=== PATIENT | female | born 1950 | race Caucasian/White ===

== ENCOUNTER → 2019-07-18 10:07 | Outpatient (CLI) | payer OTHER, SELFPAY ==
--- NOTE | ~2019-07-18 | DEXA_ITS ---
Bone Density Report Name: Sari Toro Age: 69 Sex: Female Ethnicity: White Date of : 1950 Indication: postmenopausal osteoporosis; monitoring treatment; asthma or emphysema; hysterectomy; Referring Provider: AINSLEY BENJAMIN Study: Bone densitometry was performed. Exam Date: July 18, 2019 Accession number: [id number] Bone Density: Region BMD T-score Z-score Classification AP Spine (L1-L4) 0.739 -2.8 -0.7 Osteoporosis Femoral Neck (Left) 0.527 -2.9 -1.1 Osteoporosis Total Hip (Left) 0.658 -2.3 -0.8 Osteopenia Femoral Neck (Right) 0.523 -2.9 -1.1 Osteoporosis Total Hip (Right) 0.610 -2.7 -1.2 Osteoporosis Total Hip Mean 0.634 -2.5 -1.0 Osteoporosis World Health Organization criteria for BMD impression classify patients as: Normal (T-score at or above -1.0), Osteopenia (T-score between -1.0 and -2.5), or Osteoporosis (T-score at or below -2.5). 10-year Fracture Risk: FRAX not reported because: Some T-score for Spine Total or Hip Total or Femoral Neck at or below -2.5 Treated for osteoporosis Previous Exams: Region Exam Age BMD T-score BMD Change BMD Change Date g/cm2 vs Baseline vs Previous AP Spine(L1-L4) 07/18/2019 69 0.739 -2.8 0.054* 0.054* 09/24/2015 65 0.685 -3.3 Total Hip(Left) 07/18/2019 69 0.658 -2.3 0.016 0.016 09/24/2015 65 0.643 -2.5 Total Hip(Right) 07/18/2019 69 0.610 -2.7 0.001 0.001 09/24/2015 65 0.609 -2.7 *Denotes significance at 95% confidence level, LSC for AP Spine = 0.022 g/cm2, LSC for Total Hip = 0.027 g/cm2 Clinical Information Provided by Patient: Is being treated for osteoporosis Has used the following medications: Fosamax (i.e. alendronate), Vitamin D Has the following medical conditions: Asthma or Emphysema, Hysterectomy Patient maximum height was 63 Menopause Age: 29 No regular weight bearing exercise Does not regularly consume dairy products Drinks caffeinated beverages Onset of menses at age 13 Number of children 2 Impression: The patient has osteoporosis, based on the Left Femoral Neck T-score. No significant bone loss was observed. Discussion: PATIENT UNDER TREATMENT WITH NO SIGNIFICANT BMD LOSS SINCE LAST EXAM. In an untreated patient, BMD typically declines with age. A lack of decline or gain is usually a sign that treatment is efficacious and fracture risk is reduced. It is important to ask patients whether they
== END ==
PROVIDERS: PCP Family Medicine Adolescent Medicine; Visit Provider Family Medicine Adolescent Medicine
DX: M81.0 Age-related osteoporosis without current pathological fracture (principal)
CPT/HCPCS: 77080

== ENCOUNTER → 2019-08-19 13:20 | Outpatient (CLI) | payer OTHER, SELFPAY ==
--- NOTE | ~2019-08-19 | MM_ITS ---
EXAMINATION: MM screening shantel BI w zach HISTORY: Screening mammogram, family history of breast cancer in her mother. TECHNIQUE: Craniocaudal and mediolateral oblique 3-D tomosynthesis images were obtained and synthetic 2-D images were generated. CAD analysis was submitted and interpreted. COMPARISON: 09/24/2015, 03/11/2012, 03/12/2006, 10/31/2004 BREAST PARENCHYMAL COMPOSITION: The breasts are heterogeneously dense, which may obscure small masses . FINDINGS: There is no evidence of suspicious mass, calcification, or architectural distortion to sugg est malignancy in either breast. There has been no suspicious interval change. IMPRESSION: 1. No mammographic evidence of malignancy. 2. Recommend routine screening mammography in one year. BI-RADS Category 1: Negative Reviewed, dictated and finalized at location A.
== END ==
PROVIDERS: PCP Family Medicine Adolescent Medicine; Visit Provider Family Medicine Adolescent Medicine
DX: Z12.31 Encounter for screening mammogram for malignant neoplasm of breast (principal)
CPT/HCPCS: 77063; 77067

== ENCOUNTER 2020-09-08 07:26 | Outpatient (CLI) | payer OTHER, SELFPAY ==
--- NOTE | ~2020-09-08 | MR_ITS ---
EXAMINATION: MR cervical spine wo/w con EXAM DATE: 09/08/2020 09:42 INDICATION: Parkinson's disease, cervical disc disorder w myelopathy. TECHNIQUE: Multi-sequential, multiplanar MR images of the cervical spine were obtained without contra st. Axial T2, axial T2 MERGE sequence. Sagittal T1, T2, T2 fat saturation images also obtained. Axi al T1 weighted sequence. Patient was then injected with 12 mL Multihance intravenous contrast and re imaged. Postcontrast axial and sagittal T1-weighted fat saturation sequences were obtained. There ar e no prior studies for comparison. FINDINGS: There is moderate loss of the C4-5 disc height, mild loss at C6-7. The vertebral bodies are aligned in the AP dimension. The spinal cord signal intensity and intrinsic morphology is normal. Ce rvicomedullary junction is normal in appearance. There is a 4 mm signal lesion in the C6 vertebral yolanda dy, could be atypical hemangioma. Paraspinal soft tissue is unremarkable. No epidural abscess. Level by level evaluation: C2-C3: Disc does not extend beyond the endplate margin. Uncovertebral joint arthropathy: Mild left. Facet joint arthropathy: Moderate right, mild to moderate left. Neural foraminal stenosis: No stenosis. Central canal stenosis: No stenosis. C3-C4: Disc does not extend beyond the endplate margin. Uncovertebral joint arthropathy: None. Facet joint arthropathy: Moderate bilateral. Neural foraminal stenosis: No stenosis. Central canal stenosis: No stenosis. C4-C5: There is a mild diffuse disc bulge. Uncovertebral joint arthropathy: Moderate bilateral. Facet joint arthropathy: Severe right, moderate left. Neural foraminal stenosis: Moderate to severe bilateral. Central canal stenosis: Mild. C5-C6: There is a mild diffuse disc bulge. Uncovertebral joint arthropathy: Mild right. Facet joint arthropathy: Moderate left, mild right. Neural foraminal stenosis: No stenosis. Central canal stenosis: No stenosis. C6-C7: There is a mild diffuse disc bulge. Uncovertebral joint arthropathy: Mild bilateral. Facet joint arthropathy: Moderate left, mild right. Neural foraminal stenosis: No stenosis. Central canal stenosis: Mild. C7-T1: Disc does not extend beyond the endplate margin. Uncovertebral joint arthropathy: None. Facet joint arthropathy: Mild bilateral. Neural foraminal stenosis: No stenosis. Central canal stenosis: No stenosis. IMPRESSION: 1. C4-5 moderate to severe bilateral neural foraminal stenosis. 2. Small nonspecific C6 lesion probably atypical hemangioma in absence of known primary cancer. If i ndicated clinically, a three-month follow-up MR without contrast can be obtained. Reviewed, dictated and finalized at location A. IMPRESSION: 1. C4-5 moderate to severe bilateral neural foraminal stenosis. 2. Small nonspecific C6 lesion probably atypical hemangioma in absence of know n primary cancer. If indicated clinically, a three-month follow-up MR without c ontrast can be obtained.
--- NOTE | ~2020-09-08 | MR_ITS ---
EXAMINATION: MR brain/brain stem wo/w con EXAM DATE: 09/08/2020 09:42 INDICATION: Parkinson's disease, cervical disc disorder w myelopathy. TECHNIQUE: Magnetic resonance imaging (MRI) of the brain/brain stem obtained without contrast. Sagit gabino T1, axial diffusion, gradient echo (T2*), T1, T2, FLAIR sequences obtained. Patient was then inj ected with 12 cc intravenous Multihance contrast. Axial and coronal postcontrast T1 weighted sequence s obtained. Comparison is made to prior examination from 10/22/2018. FINDINGS: There are no areas of restricted diffusion to suggest acute infarction. There is no acute hemorrhage seen on the T2*, a hemosiderin sensitive sequence. No intraparenchymal brain mass lesion. There is mild periventricular and subcortical T2/FLAIR signal hyperintensity, nonspecific but probab ly related to small vessel ischemic disease (microangiopathy). There are no extra-axial collections . Flow voids are seen in the cerebral arteries on the T2-weighted sequences consistent with their ex pected patency. The orbits are unremarkable. Soft tissue is unremarkable. Moderate sinus mucoperio steal thickening without air-fluid levels. There is no significant interval change. IMPRESSION: Mild microangiopathy, unchanged. Reviewed, dictated and finalized at location A.
[2020-09-08 08:42] LABS: Estimated Glomerular Filt Rate > 60
== END 2020-09-08 07:27 | disposition home or self-care (01) ==
PROVIDERS: PCP Family Medicine Adolescent Medicine; Visit Provider Psychiatry & Neurology Neurology
DX: G20 Parkinson's disease (principal); M47.13 Other spondylosis with myelopathy, cervicothoracic region; M48.03 Spinal stenosis, cervicothoracic region; I73.9 Peripheral vascular disease, unspecified
CPT/HCPCS: 70553; 72156; A9577

== ENCOUNTER → 2022-01-27 12:17 | Outpatient (CLI) | payer OTHER, SELFPAY ==
--- NOTE | ~2022-01-27 | MM_ITS ---
EXAMINATION: MM screening shantel BI w zach HISTORY: Screening mammogram TECHNIQUE: Craniocaudal and mediolateral oblique 3-D tomosynthesis images were obtained and synthetic 2-D images were generated. CAD analysis was submitted and interpreted. COMPARISON: 08/19/2019, 09/24/2015 bilateral screening mammogram examinations BREAST PARENCHYMAL COMPOSITION: The breasts are heterogeneously dense, which may obscure small masses . FINDINGS: There is no evidence of suspicious mass, calcification, or architectural distortion to sugg est malignancy in either breast. There has been no suspicious interval change. IMPRESSION: 1. No mammographic evidence of malignancy. 2. Recommend routine screening mammography in one year. BI-RADS Category 1: Negative Reviewed, dictated and finalized at location A.
== END ==
PROVIDERS: PCP Family Medicine Adolescent Medicine; Visit Provider Family Medicine Adolescent Medicine
DX: Z12.31 Encounter for screening mammogram for malignant neoplasm of breast (principal)
CPT/HCPCS: 77063; 77067

== ENCOUNTER → 2023-01-29 14:44 | Outpatient (CLI) | payer OTHER, SELFPAY ==
--- NOTE | ~2023-01-29 | XR_ITS ---
EXAMINATION: XR knee LT 3V DATE: 01/29/2023 15:46 INDICATION: Left knee pain TECHNIQUE: Standing AP and lateral views of the left knee were obtained. COMPARISON: None. FINDINGS: Alignment is normal. No fracture. Mild joint space narrowing in the lateral and 2 lesser degree medi al compartments. Moderate size marginal osteophytes along the lateral tibial plateau and tiny margina l osteophytes and the medial and patellofemoral compartments. Soft tissues are unremarkable with no j oint effusion. IMPRESSION: 1. Lateral compartment predominant mild tricompartmental osteoarthritis at the left knee. Reviewed, dictated and finalized at location A.
== END ==
PROVIDERS: PCP Family Medicine Adolescent Medicine; Visit Provider Family Medicine Adolescent Medicine
DX: M17.12 Unilateral primary osteoarthritis, left knee (principal)
CPT/HCPCS: 73562

== ENCOUNTER → 2023-01-29 14:44 | Outpatient (CLI) | payer OTHER, SELFPAY ==
--- NOTE | ~2023-01-29 | MM_ITS ---
EXAMINATION: MM screening shantel BI w zach HISTORY: Screening mammogram TECHNIQUE: Craniocaudal and mediolateral oblique 3-D tomosynthesis images were obtained and synthetic 2-D images were generated. CAD analysis was submitted and interpreted. COMPARISON: , 08/19/2019, 09/24/2015 bilateral screening mammogram examinations BREAST PARENCHYMAL COMPOSITION: The breasts are heterogeneously dense, which may obscure small masses . FINDINGS: There is no evidence of suspicious mass, calcification, or architectural distortion to sugg est malignancy in either breast. There has been no suspicious interval change. IMPRESSION: 1. No mammographic evidence of malignancy. 2. Recommend routine screening mammography in one year. BI-RADS Category 1: Negative Reviewed, dictated and finalized at location A.
== END ==
PROVIDERS: PCP Family Medicine Adolescent Medicine; Visit Provider Obstetrics & Gynecology
DX: Z12.31 Encounter for screening mammogram for malignant neoplasm of breast (principal)
CPT/HCPCS: 77063; 77067

== ENCOUNTER 2024-01-08 11:02 | Outpatient (CLI) | payer OTHER, SELFPAY ==
--- NOTE | ~2024-01-08 | US_ITS ---
LEFT LOWER EXTREMITY VENOUS ULTRASOUND Ordering provider: Dashawn Reese MD History: . 3 days edema left lower leg. Rule out DVT . Comparison: None. FINDINGS: --COMMON FEMORAL: Patent and free of thrombus. Normal compressibility, phasic flow and augmentation. --PROXIMAL SUPERFICIAL FEMORAL: Patent and free of thrombus. Normal compressibility, phasic flow and augmentation. --DISTAL SUPERFICIAL FEMORAL: Patent and free of thrombus. Normal compressibility, phasic flow and au gmentation. --POPLITEAL: Patent and free of thrombus. Normal compressibility, phasic flow and augmentation. --POSTERIOR TIBIAL: Patent and free of thrombus. Normal compressibility, phasic flow and augmentation . IMPRESSION: Negative left lower extremity venous US. No deep vein thrombosis. Reviewed, dictated and finalized at location A.
== END 2024-01-08 11:03 | disposition home or self-care (01) ==
PROVIDERS: PCP Family Medicine Adolescent Medicine; Visit Provider Family Medicine Adolescent Medicine
DX: R60.0 Localized edema (principal)
CPT/HCPCS: 93971

== ENCOUNTER 2024-02-04 11:08 | Outpatient (CLI) | payer OTHER, SELFPAY ==
--- NOTE | ~2024-02-04 | XR_ITS ---
Left ankle Technique: AP, oblique, and lateral views were obtained. Clinical History: Osteoarthritis COMPARISON: 02/25/2018 Findings: Transverse fracture the distal tibial metaphyseal region is present, essentially nondisplac ed. There is a transverse comminuted fracture of the distal fibular shaft. Fractures are probably sub acute in nature.. Ankle mortise and other visualized joint spaces are preserved. Mild soft tissue swe lling noted. Impression: Probable subacute (versus acute) fractures of the distal tibial metaphysis and distal fibular shaft, as detailed above. Reviewed, dictated and finalized at location . Impression: Probable subacute (versus acute) fractures of the distal tibial metaphysis and distal fibular shaft, as detailed above.
== END 2024-02-04 11:09 ==
PROVIDERS: PCP Family Medicine Adolescent Medicine; Visit Provider Family Medicine Adolescent Medicine
DX: M19.072 Primary osteoarthritis, left ankle and foot (principal)
CPT/HCPCS: 73610

== ENCOUNTER 2024-06-26 11:00 | Outpatient (RCR) | payer OTHER, SELFPAY ==
--- NOTE | 2024-05-26 15:29 | OPREHPOC ---
Outpatient Therapy Plan of Care This is a Multidisciplinary Plan of Care that may contain components documented by all disciplines (PT, OT, and ST.) PT Problem 1 PT Problem #1 Knowledge Deficit PT Goal 1 Goal / Goal Update Elliott with HEP Target Visit 4 PT Goal 2 Goal / Goal Update Patient will report no pain greater than 3/10 for 2 consecutive weeks with ambulation Target Visit 8 PT Problem 2 PT Problem #2 Impaired Range of Motion PT Goal 1 Goal / Goal Update 1. Achieve 15 degrees of left ankle dorsiflexion for improved terminal stance 2. Improve L ankle dorsiflexion to 45 degrees to improve push off from terminal stance of gait Target Visit 8 PT Problem 3 PT Problem #3 Impaired Strength PT Goal 1 Goal / Goal Update Improve gross left ankle strength to 4+/5 to improve stability with gait and ADLs Target Visit 8 PT Problem 4 PT Problem #4 Impaired Gait PT Goal 1 Goal / Goal Update Ambulate with even stride length bilaterally Target Visit 8
--- NOTE | 2024-05-26 15:29 | PTOPEVAL1 ---
Assessment and note entered by Bob Hernandez, PT Evaluation Information Assessment Status Evaluation Diagnosis Fracture of left distal fibula ICD-10 Condition Codes (PT) Pain in left ankle and joints of left foot M25.572 Onset 01/25/24 Subjective Information Reports that she is not having pain at rest. She does note increased pain with walking including around house and in grocery store. She has had an issue with her left leg for years and reports that she has had swelling off and on for a few years. Swelling has gotten worse over time but has had multiple dopplers to assess. She has been diagnosed with early Parkinson's about 4 years ago . She has been wearing slip on shoes. Denies history of fall. Denies any issues with the right side of her body. She was in a CAM boot for approximately 2 months. Reported Pain Level Pain Score 5: Self Report Assessment PT Clinical Summary Patient presents with decreased ankle mobility and strength secondary to ankle fracture. Patient will benefit form skilled therapy to address these deficits to improve functional mobility. ankle mobility, and gross LE strength through gait training. Plan of Care Interventions Aquatic Therapy,Gait Training,Hot Pack/Cold Pack, Manual Therapy,Neuro Re-education,Therapeutic Activities,Therapeutic Exercise PT Services Indicated Yes Treatment Frequency and 1-2x/week for 8 visits Duration These treatments will address the objective and functional deficits as defined above. The patient will be advanced safely and appropriately in order for the patient to progress towards his/her prior level of function. Additional exercises will be introduced and as well as a comprehensive home exercise program upon discharge, if needed, ?to ensure carryover of functional gains achieved in the clinic. This treatment plan has been reviewed and agreement upon by the patient.
--- NOTE | 2024-06-26 11:40 | OPREHPOC ---
Outpatient Therapy Plan of Care This is a Multidisciplinary Plan of Care that may contain components documented by all disciplines (PT, OT, and ST.) PT Problem 1 PT Problem #1 Knowledge Deficit PT Goal 1 Goal / Goal Update Smith with HEP Target Visit 4 Progress Met PT Goal 2 Goal / Goal Update Patient will report no pain greater than 3/10 for 2 consecutive weeks with ambulation Target Visit 8 Progress Met PT Problem 2 PT Problem #2 Impaired Range of Motion PT Goal 1 Goal / Goal Update 1. Achieve 15 degrees of left ankle dorsiflexion for improved terminal stance 2. Improve L ankle plantarflexion to 45 degrees to improve push off from terminal stance of gait Target Visit 8 Progress Met PT Problem 3 PT Problem #3 Impaired Strength PT Goal 1 Goal / Goal Update Improve gross left ankle strength to 4+/5 to improve stability with gait and ADLs Target Visit 8 Progress Met PT Problem 4 PT Problem #4 Impaired Gait PT Goal 1 Goal / Goal Update Ambulate with even stride length bilaterally Target Visit 8 Progress Met
--- NOTE | 2024-06-26 11:40 | PTOPDC ---
Assessment and note entered by Bob Hernandez, PT Evaluation Information Assessment Status Discharge Diagnosis Fracture of left distal fibula ICD-10 Condition Codes (PT) Pain in left ankle and joints of left foot M25.572 Onset 01/25/24 Subjective Information Reports that overall she is feeling a lot better. Feels she is walking evenly. Pain has been controlled and and feels like the ankle is moving appropriately. Reported Pain Level Pain Score 0: Self Report Assessment PT Clinical Summary Patient met all goals for therapy at this time and is suitable for discharge to [facility]. Patient needs continued strengthening reinforcement through [facility] for buttermaker continuous churn stabilization. Plan of Care PT Services Indicated Yes
== END 2024-06-26 15:17 | disposition home or self-care (01) ==
LOC: ANHPT 11:00
PROVIDERS: PCP Family Medicine Adolescent Medicine; Visit Provider Orthopaedic Surgery
DX: M79.672 Pain in left foot (principal); S82.832A Other fracture of upper and lower end of left fibula, initial encounter for closed fracture
CPT/HCPCS: 97110; 97116; 97140; 97161; 97530

== ENCOUNTER 2024-08-13 12:34 | Outpatient (CLI) | payer OTHER, SELFPAY ==
--- NOTE | ~2024-08-13 | DEXA_ITS ---
Bone Density Report Name: DALE PARKS Age: 74 Sex: Female Ethnicity: White Date of : 1950 Indication: postmenopausal; screening for osteoporosis; height loss; asthma or emphysema; hysterectomy; Referring Provider: AINSLEY BENJAMIN Study: Bone densitometry was performed. Exam Date: August 13, 2024 Accession number: [id number] Bone Density: Region BMD T-score Z-score Classification AP Spine(L1-L4) 0.706 -3.1 -0.7 Osteoporosis Femoral Neck (Left) 0.477 -3.3 -1.3 Osteoporosis Total Hip (Left) 0.640 -2.5 -0.7 Osteoporosis Femoral Neck (Right) 0.525 -2.9 -0.8 Osteoporosis Total Hip (Right) 0.755 -1.5 0.3 Osteopenia Total Hip Mean 0.697 -2.0 -0.2 Osteopenia World Health Organization criteria for BMD impression classify patients as: Normal (T-score at or above -1.0), Osteopenia (T-score between -1.0 and -2.5), or Osteoporosis (T-score at or below -2.5). 10-year Fracture Risk: FRAX not reported because: Some T-score for Spine Total or Hip Total or Femoral Neck at or below -2.5 Clinical Information Provided by Patient: Has used the following medications: Fosamax (i.e. alendronate), Vitamin D, Calcium Has the following medical conditions: Asthma or Emphysema, Hysterectomy Patient maximum height was 63 Menopause Age: 29 Onset of menses at age 12 Number of children 2 Impression: The patient has osteoporosis, based on the Left Femoral Neck T-score. Discussion: INCREASED RISK OF FRACTURE. BONE DENSITY IS UNDESIRABLY LOW AT ONE OR MORE SKELETAL SITES, CONSISTENT WITH POSTMENOPAUSAL OSTEOPOROSIS. This patient's lowest T-score meets the World Health Organization's (WHO) criteria for osteoporosis at one or more sites (T-score -2.5 or below). In untreated patients, the risk of osteoporotic fracture increases approximately two-fold for each 1.0 SD decrease in T-score. Low bone density is not the only risk factor for fracture; also consider factors such as patient's age, frailty or poor health, risk of falling, risk of injury, previous osteoporotic fracture, family history of osteoporosis, cigarette smoking, low body weight, etc. Not everyone with low bone mineral density has osteoporosis; osteomalacia and other metabolic bone disorders should also be considered. Patients who have osteoporosis should be evaluated for specific diseases and conditions (secondary causes) that may cause or contribute to bone loss. The [place] Association [employer] Clinical Endocrinologists (AACE) and National Osteoporosis Foundation (NOF) recommend pharmacologic intervention for all postmenopausal women whose T-score is in this range. The patient should follow a healthful lifestyle (good nutrition with adequate calcium and vitamin D, and appropriate weight-bearing exercise). Follow-Up: Consider a repeat BMD and Vertebral Fracture Assessment (VFA) exam in 2 years or sooner if medically necessary, to reassess this patient's status. Reported by: DASH on 08/13/2024 1:09:00 PM. Reviewed, dictated and finalized at location A. [facility]
--- OUTSIDE RECORDS SUMMARY | 2024-08-13 13:53 | XMS_ITS | Referral Summary ---
Author Organization [facility] Address [address] [place] [address] Care Team Providers Care Record Librarian Name Role Phone Dashawn Reese MD Primary Care Prov ider Allergies No known active allergies Medications albuterol HFA (PROVENTIL HFA,VENTOLIN HFA,PROAIR HFA) 90 mcg/actuation inhaler Inhale 2 puffs every 6 (six) hours as needed for wheezing Active atorvastatin (LIPITOR) 40 mg tablet Take 1 tablet (40 mg total) by mouth daily Active beclomethasone (QNASL) 80 mcg/actuation HFA aerosol inhaler Administer 2 sprays into each nostril daily Active ibandronate (BONIVA) 150 mg tablet Take 1 tablet (150 mg total) by mouth every 30 (thirty) days Take in AM with glass of water prior to food, don't lie down for 30 minutes. Active ZOLMitriptan (ZOMIG) 5 mg tabletIndications: Migraine Take 1 tablet (5 mg total) by mouth once as needed for migraine May repeat in 2 hours if unresolved. Do not exceed 10 mg in 24 hours. Active Flovent HFA 220 mcg/actuation inhaler Inhale 2 puffs 2 (two) times a day 3 Active docusate sodium (COLACE ORAL) Take 1 tablet by mouth daily Active carbidopa-levodopa (SINEMET) 25-100 mg per tablet Take 1.5 tablets by mouth 3 (three) times a day AND 2 tablets nightly. 585 tablet 3 4 025 Active amitriptyline (ELAVIL) 50 mg tablet Take 2 tablets (100 mg total) by mouth nightly 180 tablet 3 4 Active calcium citrate 250 mg calcium tablet tablet Take 1 tablet (250 mg total) by mouth daily Active ondansetron ODT (ZOFRAN-ODT) 4 mg disintegrating tablet DISSOLVE 1 TABLET(4 MG) ON THE TONGUE EVERY 8 HOURS NEEDED FOR NAUSEA OR VOMITING 20 tablet 2 4 Active Active Problems Problem Noted Date Diagnosed Date Parkinson's disease ([facility]) 04/25/2023 Social History Tobacco Use Types Packs/Day Years Used Date Smoking Tobacco: Former Comments:quit in 2013 AUDIT-C Answer Date Recorded Q1: How often do you have a drink containing alc ohol? Monthly or less 04/17/2024 Q2: How many drinks containi ng alcohol do you have on a typical day when you are drinking? 1 or 2 04/17/2024 Q3: How often do you have si x or more drinks on one occasion? Never 04/17/2024 Comments Unknown Sex and Gender Information Value Date Recorded Sex Assigned at Not on file Legal Sex Female 2:44 PM CDT Gender Identity Not on file Sexual Orientation Not on file Last Filed Vital Signs Vital Sign Reading Time Taken Comments Blood Pressure 122/74 04/17/2024 10:48 AM DATA CLERK Pulse 72 04/17/2024 10:48 AM DATA CLERK Temperature - - Respiratory Rate 16 04/17/2024 10:48 AM DATA CLERK Oxygen Saturation 95% 04/17/2024 10:48 AM DATA CLERK Inhaled Oxygen Concentration - - Weight 61.2 kg (135 lb) 04/17/2024 10:48 AM DATA CLERK Height 160.1 cm (5' 3.03 ) 04/17/2024 10:[address] Body Mass Index 23.89 04/17/2024 10:48 AM DATA CLERK Plan of Treatment Not on file Insurance MEDICARE [facility] Care Teams Record Librarian Relationship Specialty Start Date End Date Dashawn Reese MD [address] [place] [address] PCP - General Family Medicine 08/19/18
--- OUTSIDE RECORDS SUMMARY | 2024-08-13 13:53 | XMS_ITS | Clinical Summary ---
Author Organization [facility] Address [facility] [place] [address] Care Team Providers Care Park Landscape Architect Name Role Phone Dashawn Reese MD Primary [...] Problem Noted Date Diagnosed Date Parkinson's disease (CMS/HCC) 04/25/2023 Surgical History Surgery Date Site/Laterality Comments SINUS SURGERY 06/11/2006 - 06/10/2007 HYSTERECTOMY Medical History Medical History Date Comments Parkinson disease (HCC) Tremor Social History Tobacco Use Types Packs/Day Years [...] on file Sexual Orientation Not on file Obstetrics History Last Filed Vital Signs Vital Sign Reading Time Taken Comments Blood Pressure 122/74 04/17/2024 10:48 AM STATION JAILER Pulse 72 04/17/2024 10:48 AM STATION JAILER Temperature - - Respiratory Rate 16 04/17/2024 10:48 AM STATION JAILER Oxygen Saturation 95% 04/17/2024 10:48 AM STATION JAILER Inhaled Oxygen Concentration - - Weight 61.2 kg (135 lb) 04/17/2024 10:48 AM STATION JAILER Height 160.1 cm (5' 3.03 ) 04/17/2024 10:[address] Body Mass Index 23.89 04/17/2024 10:48 AM STATION JAILER Plan of Treatment Health Maintenance Due Date Last Done Comments Colon Cancer Screening-Colonoscopy 1950 Depression Screening 1950 Fall Risk Assessment 1950 Hepatitis C Screening 1950 Osteoporosis Screening-Bone Density Scan 1950 DTaP/Tdap/Td Vaccine (1 - Tdap) 1960 Hepatitis B Screening 1967 Well Visit 65+ 2014 Covid-19 Vaccine (3 2023- season) 02/10/202407/2020, 08/13/2020 Influenza Vaccine (#1) 2024 Pneumococcal vaccine 65+ Completed 07/04/2018, 07/2017 Zoster Vaccine Completed 12/31/2019, 08/15/2019 Insurance MEDICARE [facility] Care Teams Park Landscape Architect Relationship Specialty Start Date End Date Dashawn Reese MD [address] [place] [address] PCP - General Family Medicine 08/19/18
--- OUTSIDE RECORDS SUMMARY | 2024-08-13 13:53 | XMS_ITS | Continuity of Care Document ---
Author Organization [facility] Address [address] [place] [address] Phone Care Team Providers Care Payment Processor Name Role Phone Yaronparesh EVELINAngelesKathryn Unavailable Unavailable Allergies, Adverse Reactions, Alerts Substance Reaction Status Criticality No Known Allergies Active No Inform ation Medications Medication Instructions Dosage Effective Dates (start - stop) Status Comments QVAR REDIHALER 80MCG ORALINH (120) INHALE 2 PUFFS BY MOUTH TWICE DAILY - Active fluticasone 50 mcg/actuation nasal spray,suspension spray 2 spray by intranasal route every day in each nostril 100 MCG - Active Ventolin HFA 90 mcg/actuation aerosol inhaler inhale 2 puff by inhalation route every 4 - 6 hours as needed - Active carbidopa 25 mg-levodopa 100 mg tablet take 1 tablet by oral route 3 times every day 1.00 tablet - Active ibandronate 150 mg tablet take 1 tablet by oral route every month (same date) with a full glass of water and remain in upright positionat least 1 hour. 150 MG - Active Centrum 3,500 unit-18 mg-0.4 mg chewable tablet - Active amitriptyline 50 mg tablet take 1 tablet by oral route every day at bedtime 50 MG - Active Zomig 5 mg tablet take 1 tablet by oral route once; if headache returns, the dose may be repeated after 2 hours, notto exceed 10 mg within 24 hours 5 MG - Active Qvar RediHaler 80 mcg/actuation HFA breath activated aerosol inhale 2 puff by inhalation route 2 times every day 160 MCG - No Longer Active Advance Directives Directive Yes / No Effective Date File Name No Information Encounters Encounter Description Practice Location Reason(s) For Visit Diagnoses Date Provider Providers Copied on Encounter [facility], [address], [place], [place], [id number] , tel: [phone] [facility] No Information Rogelio Reynosoine . [address] [place] [address], [id number] , . tel: [phone] [facility], [address], [place], [place], [id number] , tel: [phone] [facility] (chief complaint) Asthma-con trol (chief complaint) Rhinitis (chief complaint) Mild persistent asthma, uncomplicatedNon-a llergic rhinitisModerate persistent asthma, uncomplicated Yaronparesh HorneKathryn . [address] [place] [address], [id number] , . tel: [phone] Referring Provider: Liu Willis, [address] [place] [address], [id number] . tel:[phone] [facility], [address], [place], [place], [id number] , tel: [phone] [facility] Mild persistent asthma, uncomplicatedNon-a llergic rhinitisEncounter for exam of blood pressure w/o abnormal findings Rogelio Peralta . [address] [place] [address], [id number] , . tel: [phone] Referring Provider: Liu Willis, [address] [place] [address], [id number] . tel:[phone] [facility], [address], [place], [place], [id number] , tel: [phone] [facility] Mild persistent asthma, uncomplicatedNon-a llergic rhinitisTonsillar cyst 8 Lazaro Hatfield. [address] [place] [address], [id number] , . tel: [phone] Referring Provider: Dashawn Bruce, [address] [place] [address], [id number]. tel:[phone] [facility], [address], [place], [place], [id number] , tel: [phone] [facility] Mild persistent asthma without complicationNon-al lergic rhinitisTonsillar cyst Lazaro Hatfield. [address] [place] [address], [id number] , . tel: [phone] Referring Provider: Dashawn Bruce, [address] [place] [address], [address]. tel:[phone] [facility], [address], [place], [place], [id number] , tel: [phone] [facility] CHRONIC OBSTRUCTIVE ASTHMA, UNSPECIFIEDNON-ALL ERGIC RHINITIS Rogelio Peralta . [address] [place] [address], [id number] , . tel: [phone] Referring Provider: Liu Willis, [address] [place] [address], [id number] . tel:[phone] [facility], [address], [place], [place], [id number] , tel: [phone] [facility] CHRONIC OBSTRUCTIVE ASTHMA, UNSPECIFIEDNON-ALL ERGIC RHINITISPolyp of nasal cavity Lazaro Hatfield. [address] [place] [address], [id number] , . tel: [phone] Referring Provider: Dashawn Bruce, [address] [place] [address], [id number]. tel:[phone] [facility], [id number] [place] [address], [id number] , tel: [phone] [facility] Other Dyspnea/Respirator y AbnormalitiesNON-A LLERGIC RHINITISPolyp of nasal cavity Lazaro Hatfield. [address] [place] [address], [id number] , . tel:[phone] Referring Provider: Dashawn Bruce, [address] [facility], [place], [address]. tel:[phone] Family History Family Member Type Diagnosis Age At Onset Daughter Problem (finding) asthma Mother Problem (finding) Allergies, environmenta l Payers Payer name Insurance type Covered libertarian ID Authorbeth timaggy(s) [place]IC[place] [id number] [facility] [id number] Social History Type Description Quantity Date Captured Comments Sex Female Smoking Status No Information Chief Complaint And Reason For Visit No Information Reason For Referral Reason For Referral No Information History Of Present Illness Encounter Date Complaint History Of Prese nt Illness Rhinitis Asthma-control Sari was seen today for asthma management. Her asthma is classified as Mild Persistent.She has NO history of prior intubation/ICU care for asthma.She has not had prior hospitalization(s) for asthma.Since Her last visit for asthma control on 04/23/2018, She has had asthma related:-hospitalizations: NO-ER/Urgent care visits: NO-oral steroids: NO-rescue inhaler use: YES-Missed school/work: NOAsthma Control Test score: 231. Unlimited activity: None of the time (5)2. Caused shortness of breath: Not at all (5)3. Interrupted sleep: Not at all (5)4. How often using rescue med: Once a week or less (4)5. Personal rating of control: Well controlled (4)The asthma is Well Controlled.Known triggers include: smoke.Environmental exposure/control:Smoker: YESTobacco exposure: NO, Former for 10 yearsPets/animals: NOFamily history notable for:Asthma: NOAllergy: YES, motherPrevious allergy testing was on 04/22/2014. Results - Negative.Spirometry was last performed on 04/23/2018. Results - WNL. Asthma (comments) Last office vi sit 04/23/18Continues to use Qvar 80 2 puffs BID and Ventolin PRNNow with less coughing and using Ventolin lessmost recently used Ventolin when she was at her daughter's where they smokeHad a URI this Winter that did not require Ventolin No nocturnal or quilter fixer symptomsDenies trouble with exertionShe feels well controlled Asthma Rhinitis (comments) Skin testing all negative (04/22/14)Has a history of sinusitis and then a polypectomy in 2010 that helped with her rhinitis symptoms. Continues with chronic anosmia however not willing to have surgery again Changed from Fluticasone nasal spray to Nasacort and continues to use [place] mist PRN for nasal congestionNasal congestion is worse at night No sinusitis in the interim Functional Status Date Functional Assessmen t No Information Instructions Date Instruction Additional Infor dajuan Pulmonary functions performed today with good effort were WITHIN NORMAL LIMITS for age and height and is similar to the reading from the last office visit. Asthma has overall been stable. Continue with your daily controller medications including Qvar 80mcg 2 puffs twice daily. Continue to use the rescue medication Ventolin, as needed. Call for use of the rescue medication that is more than 2 times per week, difficulties with frequent night time awakenings, difficulties with exercise, or prolonged cough associated with colds. Related to Mild persistent asthma, uncomplicated Continue with Non-Al lergic Rhinitis (IVETH) medications Nasacort 2 sprays each nostril daily and saline spray as needed. Continue to avoid the usual irritant triggers including strong odors, pollution, weather changes, and smoke. Call for increasing symptoms or difficulty with medications. Related to Non-allergic rhinitis Medication management Medication management Assessments Type Assessment Date No Information Patient Care Teams Name Effective Dates (start - stop) Status Members No Information
== END 2024-08-13 12:35 | disposition home or self-care (01) ==
LOC: ANHIMG 12:37
PROVIDERS: PCP Family Medicine Adolescent Medicine; Visit Provider Family Medicine Adolescent Medicine
DX: M81.0 Age-related osteoporosis without current pathological fracture (principal); M85.89 Other specified disorders of bone density and structure, multiple sites
CPT/HCPCS: 77080